=== PATIENT | male | born 1975 | race Caucasian/White ===

== ENCOUNTER 2020-05-09 13:42 | Outpatient (CLI) | payer BC | END 2020-05-09 13:43 | disposition home or self-care (01) | LOC: COV 13:42 | PROVIDERS: ATTEND Family Medicine | DX: U07.1 COVID-19 (principal) ==

== ENCOUNTER 2020-11-12 21:14 | Emergency (ER) | payer BC ==
[2020-11-12] MEDS ORDERED: OFLOXACIN 0.3% OPHTH DROPS RIGHTEYE SCH (22:00)
--- NOTE | 2020-11-12 22:23 | ED Physician Documentation ---
PD HPI OPHTHO - Stated complaint Stated Complaint: R EYE PX - Chief complaint Chief Complaint: Heent - History obtained from History obtained from: Patient - Additional information Additional information: 45-year-old man without history of corrective lenses or visual deficit presents with red eye associated with irritation over the past 3 days, right-sided, progressively worsening constant without discharge or fevers, no visual changes. He states that he may have gotten some drywall in his back with does not think that this is possible in does not see anything. Does have some conjunctival injection to the medial aspect that he says has been getting worse and worse. Review of Systems Eyes: reports: Irritation. denies: Loss of vision, Decreased vision, Photophobia, Discharge PD PAST MEDICAL HISTORY - Past Medical History Past Medical History: No - Past Surgical History Past Surgical History: No - Present Medications Home Medications: Ambulatory Orders Medication Instructions Recorded Confirmed Ofloxacin 0.3% Ophth Drops 1 drops RIGHTEYE Q4H 10 Days #1 11/12/20 [Ocuflox 0.3% Ophth Drops] bottle - Allergies Allergies/Adverse Reactions: Allergies Allergy/AdvReac Type Severity Reaction Status Date / Time No Known Drug Allergies Allergy Verified 11/12/20 21:22 - Social History Does the pt smoke?: No Smoking Status: Never smoker Does the pt drink ETOH?: No Does the pt have substance abuse?: No - Immunizations Immunizations are current?: Yes - POLST Patient has POLST: No PD ED PE NORMAL - Vitals Vital signs reviewed: Yes - General General: Alert and oriented X 3, No acute distress, Well developed/nourished - HEENT HEENT: Atraumatic, PERRL, EOMI, Other (fluorescein stain of R eye with 3mm diameter area of increased uptake at 3 oclock position. piper lamp with conjunctival injection at 3oclock position without evidence of foreign body. vision 20/30 R eye, 20/40 L eye, 20/13 with both eyes. ) Results - Vitals Vitals: Vital Signs - 24 hr 11/12/20 11/12/20 21:19 22:39 Temperature 36.9 C 36.8 C Heart Rate 76 74 Respiratory 16 16 Rate Blood Pressure 138/89 H 130/88 H O2 Saturation 97 98 Oxygen O2 Source Room air PD MEDICAL DECISION MAKING - ED course ED course: 45-year-old man presents with corneal abrasion with developing ulcer. Antibiotic eyedrops prescribed. Strict return precautions given. Patient will follow up with ophthalmology. Departure - Departure Disposition: 01 Home, Self Care Clinical Impression: Corneal ulcer of left eye Condition: Good Instructions: Corneal Ulcer Prescriptions: Ofloxacin 0.3% Ophth Drops [Ocuflox 0.3% Ophth Drops] 1 drops RIGHTEYE Q4H 10 Days #1 bottle Comments: You were seen in the emergency department for corneal abrasion with ulcer formation. You should use antibiotic eyedrops as prescribed. Return to the emergency department if you have worsening vision or other concerns. Follow-up with ophthalmology. If you do not have improvement within a few days then you should return for re- check. OPHTHALMOLOGY [facility]. Staffing Coordinator. [address] [place] [address] [place] CamiloGirard, [place]. [phone]. Discharge Date/Time: 11/12/20 22:39
[2020-11-12 22:41] VITALS: BP 130/88
[2020-11-13] MEDS ORDERED: OFLOXACIN 0.3% OPHTH DROPS RIGHTEYE ONE (21:52)
== END 2020-11-12 22:39 | disposition home or self-care (01) ==
LOC: ED 21:14
DX: H16.001 Unspecified corneal ulcer, right eye (principal); S05.01XA Injury of conjunctiva and corneal abrasion without foreign body, right eye, initial encounter; X58.XXXA Exposure to other specified factors, initial encounter
CPT/HCPCS: 99282; 99283